=== PATIENT | male | born 1950 | race Caucasian/White ===

== ENCOUNTER → 2023-06-29 08:53 | Outpatient (REF) | payer MEDICARE, BC, SELFPAY | LOC: HWRCS 08:53 | PROVIDERS: ATTENDING PHYSICIAN Internal Medicine Cardiovascular Disease | DX: I42.7 Cardiomyopathy due to drug and external agent (principal) | CPT/HCPCS: 93306 ==

== ENCOUNTER → 2023-08-28 07:23 | Outpatient (REF) | payer MEDICARE, BC, SELFPAY | LOC: RAD 07:23 | PROVIDERS: ATTENDING PHYSICIAN Surgery Vascular Surgery; FAMILY PHYSICIAN Internal Medicine | DX: I73.9 Peripheral vascular disease, unspecified (principal) | CPT/HCPCS: 93922; 93925; 93978 ==

== ENCOUNTER 2023-10-11 12:31 | Emergency (ER) | payer MEDICARE, BC, SELFPAY ==
[2023-10-11 12:33] VITALS: BMI 27.9
--- NOTE | 2023-10-11 14:04 | ED.GENMED ---
History of Present Illness
<Umu Whittington PA-C - Last Filed: 10/11/23 19:59>
General
Chief Complaint: Cough
Source: patient
Exam Limitations: none
Time Seen by Provider: 10/11/23 13:43
Nursing documentation reviewed up to this point in time: agreed with
History of Present Illness
History of Present Illness:
73-year-old male with a history of with defibrillator in place, GERD, hypertension, hyperlipidemia, mantle cell lymphoma in remission presenting emergency department today with concerns of persistent fevers and cough and cold-like symptoms. Patient
started having the symptoms 4 days ago. Patient reports that he is emailing with his primary care provider and talk to him on the phone and was started on Augmentin. Patient reports that he cannot take ibuprofen. Patient has been managing his
fevers with Tylenol. Patient has had 3 doses of Augmentin. Patient denies shortness of breath or chest pain. Patient does take Bactrim 3 times a week and takes acyclovir twice daily and has been on this regimen for multiple years due to his
chronic immunosuppression. Patient denies any hemoptysis. Patient [place] any sore throat. Patient was diagnosed with pneumonia clinically and a chest x-ray was never obtained.
Review of Systems
<Umu Whittington PA-C - Last Filed: 10/11/23 19:59>
Review of Systems
All Other Systems: ROS reviewed and negative except as documented in HPI and ROS
Phy Exam
<Umu Whittington PA-C - Last Filed: 10/11/23 19:59>
Physical Exam
Physical Exam:
General: Patient is well appearing and in no acute distress; non-toxic
Skin: Warm and dry, no rashes or lesions
Head: Normocephalic, atraumatic
Eyes: Sclera non-icteric. EOMs intact.
Cardiac: Regular rate and rhythm, no murmurs
Peripheral Vascular: No lower extremity swelling or edema
Pulm: Normal respiratory effort, diffuse rhonchi heard
Abdomen: No abdominal tenderness to palpation
Neuro: CN II-XII intact, no focal neurologic deficits.
Psychiatric: Appropriate mood and affect.
Course
<Umu Whittington PA-C - Last Filed: 10/11/23 19:59>
Orders/Labs/Results
Orders:
Orders
10/11/23 13:43
CXR2 [CR Chest - 2 Views ] Urgent
Comment:
Reason For Exam: SOB
10/11/23 14:33
Vital Signs- Treatment ONCE
Frequency: Once
10/11/23 14:49
COVID-19 Antigen Urgent
Source: Nasal Swab
Complete Blood Count/With Diff Urgent
Comprehensive Metabolic Panel Urgent
10/11/23 15:20
Lactic Acid Urgent
Blood Culture Urgent
KALE Source: Blood/Venous
Specimen Description:
10/11/23 16:38
0.9% Sodium Chloride 500 ml [Nss] 500 ml IV BOLUS
Azithromycin 500 mg/250 ml [Zithromax Infusion] 500 mg in 250 ml IV NOW
CefTRIAXone [Rocephin] 1,000 mg IV NOW STA
Abnormal Lab Results
10/11/23
14:49
RBC 3.74 L 10^6/uL
(4.70-6.10)
Hgb 12.0 L g/dL
(13.0-18.0)
Hct 33.0 L %
(39.0-52.0)
MCH 32.1 H pg
(27.0-31.0)
Plt Count 99 L 10^3/uL
(130-400)
Absolute Lymphs (auto) 0.3 L 10^3/uL
(1.2-3.4)
Absolute Monos (auto) 0.9 H 10^3/uL
(0.1-0.6)
Neutrophils % 75.8 H %
(42.2-75.2)
Lymphocytes % 5.6 L %
(20.5-51.1)
Monocytes % 16.3 H %
(1.7-9.3)
Sodium 134 L mmol/L
(135-145)
BUN 31 H mg/dl
(9-20)
Glucose 123 H mg/dl
(70-99)
AST 108 H U/L
(17-59)
ALT 135 H U/L
(0-50)
Total Protein 6.0 L g/dl
(6.3-8.2)
10/11/23 14:49
10/11/23 14:49
Vital Signs
Initial and Last Documented VS:
Initial Vital Signs
BP
139/77
10/11/23 14:48
Last Documented Vital Signs
Temp Pulse Resp BP Pulse Ox
97.5 F 86 20 126/81 98
10/11/23 18:46 10/11/23 18:46 10/11/23 18:46 10/11/23 18:46 10/11/23 18:46
<Gigi Scott, DO - Last Filed: 10/11/23 14:57>
Orders/Labs/Results
Orders:
Orders
10/11/23 13:43
CXR2 [CR Chest - 2 Views ] Urgent
Comment:
Reason For Exam: SOB
10/11/23 14:33
Vital Signs- Treatment ONCE
Frequency: Once
10/11/23 14:49
COVID-19 Antigen Urgent
Source: Nasal Swab
Complete Blood Count/With Diff Urgent
Comprehensive Metabolic Panel Urgent
10/11/23 15:20
Lactic Acid Urgent
Blood Culture Urgent
KALE Source: Blood/Venous
Specimen Description:
10/11/23 16:38
0.9% Sodium Chloride 500 ml [Nss] 500 ml IV BOLUS
Azithromycin 500 mg/250 ml [Zithromax Infusion] 500 mg in 250 ml IV NOW
CefTRIAXone [Rocephin] 1,000 mg IV NOW STA
Abnormal Lab Results
10/11/23
14:49
RBC 3.74 L 10^6/uL
(4.70-6.10)
Hgb 12.0 L g/dL
(13.0-18.0)
Hct 33.0 L %
(39.0-52.0)
MCH 32.1 H pg
(27.0-31.0)
Plt Count 99 L 10^3/uL
(130-400)
Absolute Lymphs (auto) 0.3 L 10^3/uL
(1.2-3.4)
Absolute Monos (auto) 0.9 H 10^3/uL
(0.1-0.6)
Neutrophils % 75.8 H %
(42.2-75.2)
Lymphocytes % 5.6 L %
(20.5-51.1)
Monocytes % 16.3 H %
(1.7-9.3)
Sodium 134 L mmol/L
(135-145)
BUN 31 H mg/dl
(9-20)
Glucose 123 H mg/dl
(70-99)
AST 108 H U/L
(17-59)
ALT 135 H U/L
(0-50)
Total Protein 6.0 L g/dl
(6.3-8.2)
10/11/23 14:49
10/11/23 14:49
Vital Signs
Initial and Last Documented VS:
Initial Vital Signs
BP
139/77
10/11/23 14:48
Last Documented Vital Signs
Temp Pulse Resp BP Pulse Ox
97.5 F 86 20 126/81 98
10/11/23 18:46 10/11/23 18:46 10/11/23 18:46 10/11/23 18:46 10/11/23 18:46
<Umu Whittington PA-C - Last Filed: 10/11/23 19:59>
MDM/Problems Addressed
Differential Diagnosis Includes:
Differentials include kidney acquired pneumonia, acute bronchitis, COVID-19 infection, influenza
MDM/Problems Addressed:
Pneumonia:
73-year-old male with a history of with defibrillator in place, GERD, hypertension, hyperlipidemia, mantle cell lymphoma in remission presenting emergency department today with concerns of persistent fevers and cough and cold-like symptoms. Patient
started having the symptoms 4 days ago. Patient reports that he is emailing with his primary care provider and talk to him on the phone and was started on Augmentin. Patient reports that he cannot take ibuprofen.
On physical exam, he is well-appearing, he is not hypoxic, he not have a fever here for us. His CBC is unremarkable, no evidence of leukocytosis, his CMP shows a slight bump in BUN/creatinine ratio, fluids provided. Pulse ox stable on the monitor.
Chest x-ray obtained shows a severe right middle lobe pneumonia. Discussed with patient how we recommend inpatient for the symptoms. Patient adamantly declining inpatient treatment. Patient states that he will return if he experiences a
worsening of his symptoms. Considering this, patient was given a dose of IV ceftriaxone and azithromycin here. We did add oral azithromycin to his regimen and advised him to continue Augmentin. Patient has a follow-up appoint with his primary
care doctor on Thursday. Advised that patient should have a repeat chest x-ray done in a week. Advised continue Tylenol for fever control. Patient stable for discharge.
Chronic conditions affecting care:
History of mantle cell lymphoma with regimen of daily acyclovir and triweekly Bactrim
<Umu Whittington PA-C - Last Filed: 10/11/23 19:59>
*Radiology
Radiology exam reviewed: preliminary read by ED provider (right middle lobe pneumonia)
*Pulse Oximetry
Patient hypoxic: no
*Critical Care Note
Total Time (30-74mins, 75-104mins- exclusive of procedures): Not Applicable
Data Reviewed
Review of Other/Old Records Reveals: Records (Previous ER physician documentation in [facility] to review ) and Discharge Summary (no discharge summary to review )
Source: patient and records
<Uum Whittington PA-C - Last Filed: 10/11/23 19:59>
Patient Management
Escalation/DeEscalation of care consider admission/obs:
Reviewed case with my attending Dr. Scott. Patient stable for discharge.
ED Attending Note
<NABEEL Diamnod Last Filed: 10/11/23 19:59>
-
Portions of this chart may have been created with voice recognition software.� Occasional wrong word or��sound alike� substitutions may have occurred due to the inherent limitations of voice recognition software.
<Gigi Scott DO - Last Filed: 10/11/23 14:57>
ED Attending Note
Patient seen and examined by attending physician: Yes
I performed the substantive portion of visit, reviewed & personally made and approve the management plan that is documented in note by myself or JOSEMANUEL.: Yes
I performed a history and physical exam of patient and discussed management with resident, I reviewed resident's note and agree with documented findings and plan of care.: Yes
ED Attending Note:
I evaluated patient at bedside. The patient is well-appearing with room air sats of 98%. He is not in any respiratory distress. I offered and considered neb treatments as he does have rather significant rhonchi right greater than left however the
patient declines. The patient does have a history of mantle cell lymphoma chronically on Bactrim and acyclovir recently placed on Augmentin.
Discharge Plan
Departure
Patient Disposition: Home (Routine Discharge)
Date of Disposition: 10/11/23
Time of Disposition: 18:41
Patient with high blood pressure during this ER visit?: Yes
Condition: Good
Discharge Problem:
Community acquired pneumonia
Instructions: Pneumonia, Adult (DC), Cough, Adult (DC)
Prescriptions:
New
azithromycin 250 mg tablet
250 mg PO DAILY 5 Days Qty: 5 0RF
No Action
atorvastatin 80 MG tablet
80 mg PO QPM
omeprazole 40 MG capsule,delayed release(DR/EC)
40 mg PO DAILY
acetaminophen [Tylenol Extra Strength] 500 MG tablet
500 mg PO Q4HPRN PRN (Reason: pain)
bisoprolol fumarate 5 MG tablet
5 mg PO BID
eplerenone 25 MG tablet
25 mg PO DAILY
ezetimibe 10 MG tablet
10 mg PO HS
tadalafil [Cialis] 5 MG tablet
5 mg PO DAILY
magnesium oxide 500 MG capsule
500 mg PO HS
xiavkkom-llwen-lhp 149-hyal ac 1 EACH tablet
1 ea PO BID
cholecalciferol (vitamin D3) 2,000 UNIT tablet
2,000 unit PO DAILY
mv,Ca,kzc-qjxc-OD-lycopene [Centrum Men] 1 EACH tablet
1 ea PO DAILY
rivaroxaban [Xarelto] 20 MG tablet
20 mg PO QPM
icosapent ethyl [Vascepa] 1 GM capsule
2 gm PO BID
sacubitril-valsartan [Entresto] 1 EACH tablet
1 ea PO BID
Coq10
300 mg PO HS
metformin 500 MG tablet
500 mg PO HS Qty: 0 0RF
Rx Instructions:
Restart on 12/22/20
aspirin 81 MG tablet,delayed release (DR/EC)
81 mg PO DAILY Qty: 30 0RF
Rx Instructions:
continue indefinitely
Referrals:
Dayami Sánchez, [Family Provider] -
Activity Restrictions/Additional Instructions:
Azithromycin has been sent to your pharmacy. Starting tomorrow, you can take 1 tablet once daily for 5 days. Please continue the Augmentin as well.
Please return emergency department should you experience intractable fevers, chest pain, shortness of breath, intractable vomiting, abdominal pain, weakness, or any other signs or symptoms concerning to you.
Please follow-up with your primary care provider in 1 week to ensure the resolution of your symptoms and have a repeat chest x-ray performed.
Interventions
Interventions:
*Risk Screen - Suicide Last Done: 10/11/23 12:33
*General Assessment Last Done: 10/11/23 15:00
*Neglect/Abuse Screening Last Done: 10/11/23 12:33
ED- Fall Risk Assessment Last Done: 10/11/23 12:33
*ED COVID-19 Vaccine History Last Done: 10/11/23 15:00
*Nursing Disposition Last Done: 10/11/23 18:46
ED- Pulmonary Assessment Last Done: 10/11/23 15:00
Discharge Date and Time
Discharge Date/Time: 10/11/23 18:50
Print Language: EMIRATI
[2023-10-11 14:48] VITALS: BP 139/77
[2023-10-11 15:00] VITALS: BP 136/75
[2023-10-11 15:11] LABS: % Basophils 0.4 % (0-2); % Eosinophils 1.5 % (0-6); % Immature Granulocytes 0.4 % (0-0.5); % Lymphocytes 5.6 % (20.5-51.1); % Monocytes 16.3 % (1.7-9.3); % Neutrophils 75.8 % (42.2-75.2); Absolute Eosinophils 0.1 10^3/uL (0-0.7); Absolute Lymphocytes 0.3 10^3/uL (1.2-3.4); Absolute Monocytes 0.9 10^3/uL (0.1-0.6); Mean Corp Hgb Conc. 36.4 g/dL (33.0-37.0); Mean Corpuscular Hgb 32.1 pg (27.0-31.0); Mean Corpuscular Volume 88.2 fL (80.0-94.0); Nucleated Red Blood Cells % 0 % (-); Red Blood Cell Count 3.74 10^6/uL (4.70-6.10); Red Cell Dist. Width 13.1 % (11.5-14.5); White Blood Cell Count 5.2 10^3/uL (4.8-10.8)
[2023-10-11 15:20] LABS: COVID-19 Antigen Negative (Negative)
[2023-10-11 15:31] LABS: ALT (SGPT) 135 U/L (0-50); AST (SGOT) 108 U/L (17-59); Albumin 4.2 g/dl (3.5-5.0); Alkaline Phosphatase 95 U/L (38-126); Blood Urea Nitrogen 31 mg/dl (9-20); Calcium 9.3 mg/dl (8.4-10.2); Carbon Dioxide 23 mmol/L (22-30); Chloride 104 mmol/L (98-107); Estimated Creatinine Clearance 69 ml/min; Glucose 123 mg/dl (70-99); Potassium 4.8 mmol/L (3.5-5.1); Sodium 134 mmol/L (135-145); Total Bilirubin 1.2 mg/dl (0.2-1.3); eGFR > 60.00
[2023-10-11 15:39] LABS: Lactic Acid 0.9 mmol/L (0.7-2.0)
[2023-10-11 15:42] LABS: Platelet Count 99 10^3/uL (130-400)
[2023-10-11] MEDS: NSS 500 IV (17:10)
[2023-10-11] MEDS: ZITHROMAX INFUSION 250 IV (17:10)
[2023-10-11] MEDS: ROCEPHIN 1000 MG IV (17:10)
[2023-10-11 18:46] VITALS: BP 126/81
== END 2023-10-11 18:50 | disposition home or self-care (01) ==
LOC: EMR 12:31
PROVIDERS: Physician Assistant; EMERGENCY PHYSICIAN Emergency Medicine; FAMILY PHYSICIAN Internal Medicine
DX: J18.9 Pneumonia, unspecified organism (principal); K21.9 Gastro-esophageal reflux disease without esophagitis; I10 Essential (primary) hypertension; E78.00 Pure hypercholesterolemia, unspecified; D84.821 Immunodeficiency due to drugs; Z79.624 Long term (current) use of inhibitors of nucleotide synthesis; Z85.72 Personal history of non-Hodgkin lymphomas; Z95.810 Presence of automatic (implantable) cardiac defibrillator
CPT/HCPCS: 99283; 96365; 96375; 71046; 80053; 83605; 85025; 87040; 87811

== ENCOUNTER → 2023-10-15 07:06 | Outpatient (REF) | payer MEDICARE, BC, SELFPAY ==
[2023-10-15 08:00] LABS: % Basophils 1.2 % (0-2); % Eosinophils 3.8 % (0-6); % Immature Granulocytes 3.8 % (0-0.5); % Lymphocytes 11.5 % (20.5-51.1); % Monocytes 12.1 % (1.7-9.3); % Neutrophils 67.6 % (42.2-75.2); Absolute Eosinophils 0.1 10^3/uL (0-0.7); Absolute Immature Granulocytes 0.1 10^3/uL (0-0.05); Absolute Lymphocytes 0.4 10^3/uL (1.2-3.4); Absolute Monocytes 0.4 10^3/uL (0.1-0.6); Absolute Neutrophils 2.3 10^3/uL (1.4-6.5); Hematocrit 33.4 % (39.0-52.0); Hemoglobin 11.8 g/dL (13.0-18.0); Mean Corp Hgb Conc. 35.3 g/dL (33.0-37.0); Mean Corpuscular Hgb 31.8 pg (27.0-31.0); Nucleated Red Blood Cells % 0 % (-); Platelet Count 142 10^3/uL (130-400); Red Blood Cell Count 3.71 10^6/uL (4.70-6.10); Red Cell Dist. Width 13.1 % (11.5-14.5); White Blood Cell Count 3.4 10^3/uL (4.8-10.8)
[2023-10-15 08:23] LABS: ALT (SGPT) 82 U/L (0-50); AST (SGOT) 49 U/L (17-59); Alkaline Phosphatase 84 U/L (38-126); Blood Urea Nitrogen 28 mg/dl (9-20); Carbon Dioxide 22 mmol/L (22-30); Chloride 110 mmol/L (98-107); Glucose 116 mg/dl (70-99); Potassium 4.6 mmol/L (3.5-5.1); Sodium 138 mmol/L (135-145); Total Bilirubin 0.4 mg/dl (0.2-1.3); Total Protein 5.6 g/dl (6.3-8.2); eGFR > 60.00
== END ==
LOC: RAD 07:06
PROVIDERS: ATTENDING PHYSICIAN Internal Medicine
DX: J18.9 Pneumonia, unspecified organism (principal); R74.01 Elevation of levels of liver transaminase levels
CPT/HCPCS: 36415; 71046; 80053; 85025

== ENCOUNTER 2023-10-29 15:33 | Inpatient (IN) | payer MEDICARE, BC, SELFPAY ==
[2023-10-29 11:38] VITALS: BP 104/67
--- NOTE | 2023-10-29 12:31 | ED.GENMED ---
History of Present Illness
General
Chief Complaint: Pneumonia Symptoms
Source: patient and spouse
Exam Limitations: none
Time Seen by Provider: 10/29/23 12:11
Nursing documentation reviewed up to this point in time: agreed with
History of Present Illness
History of Present Illness:
73 yo male hx of history of mantle cell lymphoma chronically on Bactrim and acyclovir recently placed on Augmentin, defibrillator, HTN, HLD, Pacemaker, NIDDM, Factor V Leiden is here for persistent 'low grade fevers' of 99.2, return of cough.
Was seen here on 10/10 and diagnosed with PNA, declined admission at that time, was given Rocephin 1 gm IV and [facility]. States he did well, was back to riding his bike, exercising until 4 days ago when he started with intermittent cough
and the low grade fevers. Is here requesting 'that IV antibiotic that worked so well last time.'
Denies chills, n/v/d/c. Denies CP or trouble breathing. cough does not keep him up at night, is intermittent. Appetite has been good.
Past History
Past History
ED Past Medical History: HTN, Hypercholesterolemia, NIDDM, Other (mantle cell lymphoma chronically on Bactrim and acyclovir recently placed on Augmentin, ) and Other (Factor B Leiden)
ED Past Surgical History: Cardiac (Pacemaker, defibrillator)
Social History
Tobacco: Former smoker
Alcohol: None
Personal:
Living: with family
Employment: Retired
Review of Systems
Review of Systems
Allergies reviewed?: Yes
All Other Systems: ROS reviewed and negative except as documented in HPI and ROS
Constitutional: Reports fever (Temperature max has been 99.4) and fatigue
EENT: Denies sore throat
Respiratory: Reports cough; Denies trouble breathing
Cardiac: Denies chest pain
ABD/GI: Denies abdominal pain, nausea, vomiting or diarrhea
: Reports dysuria and difficulty voiding
Musculoskeletal: Reports no symptoms
Skin: Reports no symptoms
Neurological: Reports no symptoms
Phy Exam
Physical Exam
Physical Exam:
GENERAL: No acute distress. A&Ox3.
CONSTITUTIONAL: Afebrile.
EYES: Clear, conjunctivae normal
ENMT: moist mucus membranes, Pharynx nl
RESPIRATORY: Regular respirations, nonlabored, lungs clear.
CARDIOVASCULAR: Regular rate and rhythm, no murmurs, no rubs.
GI: Soft, nontender, normal BS
MUSCULOSKELETAL: Moves with ease. Well perfused.
SKIN: Warm, dry, pink
PSYCH: Normal mood and affect. Well kept, interactive and appropriate
NEUROLOGIC: Awake, alert and oriented. No focal neurological deficits
Course
Orders/Labs/Results
Orders:
Orders
10/29/23 12:26
CR Chest - 2 Views Urgent
Comment:
Reason For Exam: recent tx for pna cough starting up again
10/29/23 12:28
Complete Blood Count/With Diff Urgent
Comprehensive Metabolic Panel Urgent
10/29/23 13:26
0.9% Sodium Chloride 1000 ml [Nss] 1,000 ml IV BOLUS
10/29/23 13:49
CefTRIAXone [Rocephin] 1,000 mg IV NOW STA
10/29/23 15:14
Admit/Transfer Patient As Directed
Co-Sign Provider:
Level of Care: Inpatient admission
Assign to:: Medical/Surgical
Physician / Group: Veronica
Diagnosis: Pneumonia
Reason for Hospitalization: Above
Expected length of stay greater than two midnights?: Yes
ELOS- Estimated Length of Stay in days: 2
I certify the patient meets the requirements for IP care: Yes
PRN Pain Medication Management As Directed
May give lesser potent ordered pain med per pt: Yes
preference::
Protocol:: Medication orders for pain may be administered in a
manner that supports deferring to patient preference
when the pt is:
-Requesting an ordered lesser potent pain medication.
Least to most potent pain medications are defined as:
acetaminophen < NSAID < tramadol < opioids (morphine,
oxycodone, hydromorphone).
- Requesting a lesser dose of the same medication IF
ORDERED.
- Requesting a less intrusive route of administration
if both routes are prescribed by the provider (PO <
IV).
10/29/23 15:17
Code Status As Directed
Resuscitation Status: Full Code
Abnormal Lab Results
10/29/23
12:28
WBC 4.3 L 10^3/uL
(4.8-10.8)
RBC 3.57 L 10^6/uL
(4.70-6.10)
Hgb 11.4 L g/dL
(13.0-18.0)
Hct 32.0 L %
(39.0-52.0)
MCH 31.9 H pg
(27.0-31.0)
Plt Count 96 L 10^3/uL
(130-400)
Absolute Lymphs (auto) 0.3 L 10^3/uL
(1.2-3.4)
Absolute Monos (auto) 0.7 H 10^3/uL
(0.1-0.6)
Lymphocytes % 6.3 L %
(20.5-51.1)
Monocytes % 17.2 H %
(1.7-9.3)
BUN 29 H mg/dl
(9-20)
Creatinine 1.4 H mg/dL
(0.7-1.3)
Glucose 133 H mg/dl
(70-99)
Total Protein 5.7 L g/dl
(6.3-8.2)
10/29/23 12:28
10/29/23 12:28
Vital Signs
Initial and Last Documented VS:
Initial Vital Signs
Temp Pulse Resp BP Pulse Ox
97.7 F 96 16 104/67 96
10/29/23 11:38 10/29/23 11:38 10/29/23 11:38 10/29/23 11:38 10/29/23 11:38
Last Documented Vital Signs
Temp Pulse Resp BP Pulse Ox
97.7 F 67 18 131/81 99
10/29/23 11:38 10/29/23 15:20 10/29/23 15:20 10/29/23 15:20 10/29/23 15:20
MDM/Problems Addressed
Differential Diagnosis Includes:
Persistent pneumonia, COVID
MDM/Problems Addressed:
73 yo male hx of history of mantle cell lymphoma chronically on Acyclovir recently finished Augmentin, defibrillator, HTN, HLD, Pacemaker, NIDDM, Factor V Leiden is here for persistent 'low grade fevers' of 99.2, return of cough.
Was seen here on 10/10 and diagnosed with PNA, declined admission at that time, was given Rocephin 1 gm IV and sent home on [facility]. States he did well, was back to riding his bike, exercising until 4 days ago when he started with intermittent cough
and the low grade fevers. Is here requesting 'that IV antibiotic that worked so well last time.'
Denies chills, n/v/d/c. Denies CP or trouble breathing. cough does not keep him up at night, is intermittent. Appetite has been good.
Well appearing, O2 sat 96% RA
1:00 PM:
CBC with no clinically significant abnormality
CMP: BUN/Creat 29/1.4
COVID-negative
Chest xray radiology report read: IMPRESSION:
Persistent right middle lobe consolidation, likely due to ongoing pneumonia. Recommend follow-up following symptom resolution to ensure no underlying lesion.
2:15 PM:
73 yo male with persistent RML pneumonia, after Rocephin IV x 1 on 10/10, Augmentin 10/08-10/22, Zpack 10/10-10/15. [place] well, after these but 4 days ago, cough starting up again as well as low grade fever.
Plan: Admit: Failing out pt antibiotics for PNA, dehydration
Chronic conditions affecting care: HTN, Cancer (mantle cell lymphoma) and Other
*Critical Care Note
Total Time (30-74mins, 75-104mins- exclusive of procedures): Not Applicable
ED Attending Note
-
Portions of this chart may have been created with voice recognition software.� Occasional wrong word or��sound alike� substitutions may have occurred due to the inherent limitations of voice recognition software.
Discharge Plan
Departure
Patient Disposition: Admit
Date of Disposition: 10/29/23
Time of Disposition: 14:06
Admit to: Med/Surg
Presentation/result/management discussed w/ accepting MD/DO: Hospitalist
Condition: Fair
Discharge Problem:
Pneumonia, Acute kidney insufficiency
Interventions
Interventions:
*Risk Screen - Suicide Last Done: 10/29/23 11:38
*General Assessment Last Done: 10/29/23 11:38
*Neglect/Abuse Screening Last Done: 10/29/23 11:38
*ED COVID-19 Vaccine History Last Done: 10/29/23 11:38
ED- Cardiac Assessment Last Done: 10/29/23 15:21
ED- Pulmonary Assessment Last Done: 10/29/23 15:21
[2023-10-29 12:55] LABS: ALT (SGPT) 40 U/L (0-50); AST (SGOT) 41 U/L (17-59); Albumin 4.1 g/dl (3.5-5.0); Alkaline Phosphatase 66 U/L (38-126); Blood Urea Nitrogen 29 mg/dl (9-20); Calcium 9.3 mg/dl (8.4-10.2); Carbon Dioxide 25 mmol/L (22-30); Chloride 103 mmol/L (98-107); Glucose 133 mg/dl (70-99); Potassium 4.3 mmol/L (3.5-5.1); Sodium 135 mmol/L (135-145); Total Protein 5.7 g/dl (6.3-8.2); eGFR 52.74
[2023-10-29 13:21] LABS: % Basophils 0.7 % (0-2); % Eosinophils 1.6 % (0-6); % Immature Granulocytes 0.2 % (0-0.5); % Lymphocytes 6.3 % (20.5-51.1); % Monocytes 17.2 % (1.7-9.3); Absolute Eosinophils 0.1 10^3/uL (0-0.7); Absolute Lymphocytes 0.3 10^3/uL (1.2-3.4); Absolute Monocytes 0.7 10^3/uL (0.1-0.6); Absolute Neutrophils 3.2 10^3/uL (1.4-6.5); Hemoglobin 11.4 g/dL (13.0-18.0); Mean Corp Hgb Conc. 35.6 g/dL (33.0-37.0); Mean Corpuscular Hgb 31.9 pg (27.0-31.0); Mean Corpuscular Volume 89.6 fL (80.0-94.0); Nucleated Red Blood Cells % 0 % (-); Red Blood Cell Count 3.57 10^6/uL (4.70-6.10); Red Cell Dist. Width 13.3 % (11.5-14.5); White Blood Cell Count 4.3 10^3/uL (4.8-10.8)
[2023-10-29 13:51] LABS: Platelet Count 96 10^3/uL (130-400)
[2023-10-29 13:52] LABS: Mean Platelet Volume 9.4 fL (7.4-10.4)
[2023-10-29] MEDS: NSS 1000 IV ×2 (14:07→17:31)
[2023-10-29] MEDS: ROCEPHIN 1000 MG IV (14:07)
[2023-10-29 15:20] VITALS: BP 131/81
--- NOTE | 2023-10-29 15:22 | HPS.HSE ---
Family Physician
-
Family Physician: Dayami Sánchez DO
Chief Complaint
-
Persistent pneumonia
History of Present Illness
Patient is a 73 years old male with history of mantle cell lymphoma, nonischemic cardiomyopathy heart block status post pacemaker, PAD who was seen in the emergency room on 728 for fever, chills and cough. At that time patient was found to have
right middle lobe pneumonia. He was offered to stay in the hospital for treatment, although declined. Patient was given a single dose of ceftriaxone and discharged home. Completed course of oral antibiotics with Zithromax prescribed by primary
physician. [place] relatively improved, over the last few days developed persistent cough, fatigue, denies any fever, although reports occasional chills and rigors.
Outpatient follow-up chest x-ray from 10/14 with findings consistent with right middle lobe pneumonia.
On presentation to the emergency room today patient is afebrile hemodynamically stable, stable respiratory status with no requirements of supplemental oxygen
His chest x-ray on admission with persistent right middle lobe infiltrate.
Patient was given ceftriaxone 1 g and referred for admission and further evaluation.
In addition on further questioning patient described discomfort with pill swallowing, occasional cough upon oral intake. He denies any pain including a dyne aphasia or epigastric pain.
Medical History
Past Medical History
Past Medical History: Reports Other (Mantle cell lymphoma. PAD. Nonischemic cardiomyopathy.)
Past Surgical History: Reports Other (Vascular/PAD)
Social History
Tobacco: Non-smoker
Drug: None
Personal:
Living: With Family
Employment: Retired
Family History
Family History: Not pertinent
Allergies / Home Medications
Allergies reflects when Allergies were last updated in [employer].
Home Medications with original date entered in [employer]
Allergy/Medication List:
Allergies
Allergy/AdvReac Type Severity Reaction Status Date / Time
allopurinol Allergy Hives Verified 10/11/23 12:35
Home Medications
bisoprolol fumarate 5 mg tablet 5 mg PO BID 12/17/20
cholecalciferol (vitamin D3) 50 mcg (2,000 unit) tablet 2,000 unit PO DAILY 12/17/20
coQ10 (ubiquinol) 100 mg capsule 100 mg PO DAILY ##0 12/17/20
eplerenone 25 mg tablet 25 mg PO DAILY 12/17/20
ezetimibe 10 mg tablet 10 mg PO HS 12/17/20
tadalafil 5 mg tablet (Cialis) 5 mg PO QPM 12/17/20
acyclovir 400 mg tablet 400 mg PO BID 10/29/23
empagliflozin 10 mg tablet (Jardiance) 10 mg PO DAILY 10/29/23
glucosamine sulfate 500 mg tablet (Glucosamine) 1,500 mg PO DAILY 10/29/23
magnesium oxide 400 mg PO DAILY 10/29/23
omeprazole 20 mg tablet,delayed release 20 mg PO DAILY 10/29/23
rivaroxaban 20 mg tablet (Xarelto) 20 mg PO QPM 10/29/23
rosuvastatin 40 mg tablet (Crestor) 40 mg PO QPM 10/29/23
sacubitril 97 mg-valsartan 103 mg tablet (Entresto) 1 tab PO BID 10/29/23
sulfamethoxazole 800 mg-trimethoprim 160 mg tablet (Bactrim DS) 1 tab PO MOWEFR@0800 10/29/23
therapeutic multivitamin 1 tab PO DAILY 10/29/23
vitamin K2 (MK-4) 100 mcg tablet 300 mcg PO DAILY 10/29/23
Review of Systems
-
A 12 point ROS was completed and negative except as noted: Yes
Respiratory: Reports See HPI
Cardiac: Reports See HPI
Abdomen/GI: Reports See HPI
Physical Exam
Vital Signs
Vital Signs
Temp Pulse Resp BP Pulse Ox
97.7 F 67 18 131/81 99
10/29/23 11:38 10/29/23 15:20 10/29/23 15:20 10/29/23 15:20 10/29/23 15:20
Physical Exam
General: Well Developed, Well Nourished and No Apparent Distress
HEENT: NormoCephalic, Moist mucous membranes and Atraumatic
Respiratory: Other (Bronchial sounds at the right midlung); No Wheezes
Cardiac: S1/S2 and Regular Rhythm; No Murmur or Rub
GI: Soft, Non Tender, Non Distended and Normal Bowel Sounds; No Organomegaly
Rectal: Deferred by Provider
Musculoskeletal: No Clubbing, No Cyanosis and No Edema
Skin: No Rash
Neuro: Nonfocal/grossly intact
Laboratory Results
-
10/29/23 12:28
10/29/23 12:28
Laboratory Results
Total Bilirubin 1.0 mg/dl (0.2-1.3) 10/29/23 12:28
AST 41 U/L (17-59) 10/29/23 12:28
ALT 40 U/L (0-50) 10/29/23 12:28
Alkaline Phosphatase 66 U/L (38-126) 10/29/23 12:28
Data Reviewed
-
Diagnostic Radiology: Report Reviewed by me
Lab Data: Labs Reviewed by me
Impression/Plan
-
IMPRESSION:
Persistent right middle lobe pneumonia
Odynophagia
Acute kidney injury
Conditions prior to admission.
Mantle cell lymphoma diagnosed in 2011 with recurrence in 2021.
Nonischemic cardiomyopathy with recovered EF.
Status post pacemaker 2014.
PAD.
Dyslipidemia.
Factor V Leyden mutation on anticoagulation with Xarelto
PLAN:
Right middle lobe pneumonia.
Suspect community-acquired.
? If related to odynophagia with reasonable suspicion for aspiration.
Initially treated in ED with ceftriaxone and doxycycline.
Blood culture from 10/10 negative.
With persistent infiltrate will need follow-up imaging.
Incentive spirometry
Mucolytic's
Odynophagia. Patient reports discomfort with swallowing pills but not real esophageal or epigastric pain.
No thrush.
Speech and swallow evaluation and VSE.
If persistent and relevant, would consider further GI evaluation including esophageal imaging
Acute kidney injury suspect secondary to Entresto, eplerenone, Bactrim.
Hold all of above.
Challenge with isotonic solution.
Monitor for hypotension.
Follow BMP
Nonischemic cardiomyopathy with recovered EF 30% to 50%
Possibly cardiac toxicity from doxorubicin
On GDMT prior to admission including bisoprolol, Entresto, Jardiance.
Monitor volume status closely
Mantle cell lymphoma.
Initial diagnosis 2011 treated with doxorubicin based regimen
Records in 2021 treated with CAR-T cell therapy
On chronic acyclovir and Bactrim
Factor V Leyden
On anticoagulation with Xarelto
PAD with history of bilateral angiogram and stenting of bilateral common iliac arteries and left external artery 01/03.
Full code
DVT prophylaxis Xarelto
[2023-10-29 16:20] LABS: COVID-19 Antigen Negative (Negative)
[2023-10-29 16:53] VITALS: BP 143/73; BMI 28.4
--- NOTE | 2023-10-29 17:25 | PTCARENOTE ---
pt arrived via stretcher from ED at 16:40. ambulated to bed independently. vital signs and assessment completed upon arrival. call corona within reach, oriented to room.
[2023-10-29] MEDS: CRESTOR 40 MG PO (17:31)
[2023-10-29] MEDS: XARELTO 20 MG PO (17:31)
[2023-10-29] MEDS: VIBRAMYCIN 100 MG PO (19:45)
[2023-10-29] MEDS: MUCINEX 600 MG PO (19:45)
[2023-10-29] MEDS: ZOVIRAX 400 MG PO (19:45)
[2023-10-29] MEDS: ZEBETA 5 MG PO (20:37)
[2023-10-29] MEDS: ZETIA 10 MG PO (21:08)
[2023-10-29 23:39] VITALS: BP 109/54
[2023-10-30 08:09] VITALS: BP 119/76
--- NOTE | 2023-10-30 08:23 | PTOTSP ---
Speech Therapy Swallowing Assessment
Oral/pharyngeal swallow deemed within functional limits without overt signs of aspiration. Given persistent right pneumonia, and patient report of a recent pill dysphagia, a VSE was ordered and will be completed later this day.
Recommend
1. Continue Regular solids and thin liquids
2. Upright with intake.
3. Pills 2-3 at a time with liquid as tolerated.
4. Reflux precautions.
5. Further recommendations as indicated following VSE.
--- NOTE | 2023-10-30 09:00 | PTOTSP ---
Addendum entered and electronically signed by ST Aurea 10/30/23 13:38:
Error in below note. Should read:
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 Please reconsult as indicated.
Original Note:
Speech Language Pathology
VIDEOFLUOROSCOPIC SWALLOWING EXAMINATION (VSE) completed. Overall, pt with functional oropharyngeal swallow. Transient trace penetration noted with thin liquids via cup. No other penetration/aspiration noted during study.
Recommend:
(1) Continue regular solids/thin liquids
(2) General aspiration precautions
(3) Meds as tolerated
(4) SHOP MECHANIC HELPER to continue to follow
[2023-10-30] MEDS: VIBRAMYCIN 100 MG PO ×2 (09:35→20:01)
[2023-10-30] MEDS: MAG-TAB SR 84 MG PO (09:36)
[2023-10-30] MEDS: ZEBETA 5 MG PO ×2 (09:36→20:01)
[2023-10-30] MEDS: PROTONIX 40 MG PO (09:36)
[2023-10-30] MEDS: VITAMIN D3 (cholecalciferol) 50 MCG PO (09:36)
[2023-10-30] MEDS: THERAGRAN 1 TABLET PO (09:36)
[2023-10-30] MEDS: ZOVIRAX 400 MG PO ×2 (09:36→20:13)
[2023-10-30] MEDS: MUCINEX 600 MG PO ×2 (09:36→20:00)
[2023-10-30] MEDS: JARDIANCE 10 MG PO (09:37)
[2023-10-30 09:43] LABS: % Basophils 0.4 % (0-2); % Eosinophils 0.8 % (0-6); % Immature Granulocytes 0.4 % (0-0.5); % Lymphocytes 7.3 % (20.5-51.1); % Monocytes 12.6 % (1.7-9.3); % Neutrophils 78.5 % (42.2-75.2); Absolute Lymphocytes 0.4 10^3/uL (1.2-3.4); Absolute Monocytes 0.6 10^3/uL (0.1-0.6); Absolute Neutrophils 3.9 10^3/uL (1.4-6.5); Hematocrit 31.9 % (39.0-52.0); Hemoglobin 11.3 g/dL (13.0-18.0); Mean Corp Hgb Conc. 35.4 g/dL (33.0-37.0); Mean Corpuscular Hgb 31.1 pg (27.0-31.0); Mean Corpuscular Volume 87.9 fL (80.0-94.0); Mean Platelet Volume 9.9 fL (7.4-10.4); Nucleated Red Blood Cells % 0 % (-); Platelet Count 96 10^3/uL (130-400); Red Blood Cell Count 3.63 10^6/uL (4.70-6.10); Red Cell Dist. Width 13.4 % (11.5-14.5); White Blood Cell Count 4.9 10^3/uL (4.8-10.8)
[2023-10-30 09:55] LABS: Blood Urea Nitrogen 19 mg/dl (9-20); Calcium 9.1 mg/dl (8.4-10.2); Carbon Dioxide 23 mmol/L (22-30); Chloride 102 mmol/L (98-107); Estimated Creatinine Clearance 69 ml/min; Glucose 183 mg/dl (70-99); Potassium 4.4 mmol/L (3.5-5.1); Sodium 135 mmol/L (135-145); eGFR > 60.00
--- NOTE | 2023-10-30 10:21 | CM ---
Addendum entered by Rin Agosto 10/30/23 10:24:
Patient provided CM with copy of Advance Directive, placed in patients chart.
Original Note:
Patient seen bedside with significant other, initial assessment completed. Patient resides in a ranch style home with a basement, one step to enter. Patient denies use of any DME, denies VN or SNF history. Patient PCP Dayami Sánchez, pharmacy
[facility] in [place]. Patient confirms prescription coverage through Medicare Part D. Patient denies food, housing/utility, transportation insecurities at home. CM will continue to follow for all discharge planning needs.
Plan; home no needs likely.
[2023-10-30] MEDS: STERILE WATER FOR INJECTION 10 ML IV (13:14)
[2023-10-30] MEDS: ROCEPHIN 1000 MG IV (13:16)
[2023-10-30 15:04] LABS: Hepatitis C Antibody Negative (Negative)
[2023-10-30 16:06] VITALS: BP 114/54
--- NOTE | 2023-10-30 16:13 | W.PN.HOSP.TC ---
Today's Communication/Plan
-
Continue antibiotics.
Monitor temperature curve
Assessment / Plan
Assessment / Plan
IMPRESSION:
Persistent right middle lobe pneumonia. Community-acquired
Immunosuppressed state
Odynophagia
Acute kidney injury
Conditions prior to admission.
Mantle cell lymphoma diagnosed in 2011 with recurrence in 2021.
Nonischemic cardiomyopathy with recovered EF.
Status post pacemaker 2014.
PAD.
Dyslipidemia.
Factor V Leyden mutation on anticoagulation with Xarelto
PLAN:
Right middle lobe pneumonia.
Community-acquired
Less likely aspiration
? If related to odynophagia with reasonable suspicion for aspiration.
Speech evaluation including VSE with no evidence of aspiration
Initially treated in ED with ceftriaxone and doxycycline.
Not septic on presentation.
Stable respiratory status with no requirements for supplemental oxygen
Blood culture from 10/10 negative.
Repeated blood culture 10/14 15 negative to date.
WBC within normal limits with left shift.
Tmax 102.9
Continue ceftriaxone doxycycline.
Continue mucolytic's incentive spirometry
Could be discharged if afebrile for 24 hours on oral antibiotics for total of 10 days and follow-up imaging as outpatient.
Odynophagia. Patient reports discomfort with swallowing pills but not real esophageal or epigastric pain.
No thrush.
Speech and swallow evaluation and VSE with no evidence of aspiration
If persistent and relevant, would consider further GI evaluation including esophageal imaging
Acute kidney injury suspect secondary to Entresto, eplerenone, Bactrim.
Hold all of above.
Creatinine improved to normal with IV fluids.
Could consider to reinstate Entresto holding Bactrim and prednisone upon discharge. Patient post CAR-T therapy will need antibiotic prophylaxis, should be referred to primary oncology.
Monitor for hypotension.
Follow BMP
Nonischemic cardiomyopathy with recovered EF 30% to 50%
Possibly cardiac toxicity from doxorubicin
On GDMT prior to admission including bisoprolol, Entresto, Jardiance.
Monitor volume status closely
Mantle cell lymphoma.
Initial diagnosis 2011 treated with doxorubicin based regimen
Records in 2021 treated with CAR-T cell therapy
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
Factor V Leyden
On anticoagulation with Xarelto
PAD with history of bilateral angiogram and stenting of bilateral common iliac arteries and left external artery 01/03.
Full code
DVT prophylaxis Xarelto
Anticipated Discharge: 24 - 48 hours
Subjective/Interval History
-
Date of Service: October 30, 2023
Objective Data
-
Labs:
Laboratory Results
10/30/23
08:56
WBC 4.9
Hgb 11.3 L
Hct 31.9 L
Plt Count 96 L
Sodium 135
Potassium 4.4
Chloride 102
Carbon Dioxide 23
BUN 19
Creatinine 1.0
Glucose 183 H
Calcium 9.1
Vital Signs:
Vital Signs
Temp Pulse Resp BP Pulse Ox
102.9 F H 80 18 114/54 95
10/30/23 16:06 10/30/23 16:06 10/30/23 16:06 10/30/23 16:06 10/30/23 16:06
I&O
10/29/23 10/30/23 10/31/23
06:59 06:59 06:59
Intake Total 480 / 480
Balance 480 / 480
Physical Exam
-
General: Well Developed and No Apparent Distress
HEENT: Normocephalic, Atraumatic and Moist Mucous Membranes
Respiratory: Rhonchi (Right base); Negative Wheezes
Cardiac: Regular Rhythm and S1/S2; Negative Murmur, Rub or Gallop
GI: Soft, Nontender, Nondistended and Normal Bowel Sounds; Negative Organomegaly
Rectal: Deferred by Provider
Musculoskeletal: No Clubbing, No Cyanosis and No Edema
Skin: Negative Rash
Neuro: Nonfocal/Grossly Intact
[2023-10-30] MEDS: XARELTO 20 MG PO (16:19)
[2023-10-30] MEDS: CRESTOR 40 MG PO (16:19)
[2023-10-30] MEDS: TYLENOL 650 MG PO (16:19)
[2023-10-30] MEDS: ZETIA 10 MG PO (22:16)
[2023-10-30 23:38] VITALS: BP 112/60
[2023-10-31 07:17] VITALS: BP 127/67
[2023-10-31] MEDS: MUCINEX 600 MG PO ×2 (08:49→20:22)
[2023-10-31] MEDS: THERAGRAN 1 TABLET PO (08:50)
[2023-10-31] MEDS: PROTONIX 40 MG PO (08:50)
[2023-10-31] MEDS: VIBRAMYCIN 100 MG PO ×2 (08:50→20:22)
[2023-10-31] MEDS: VITAMIN D3 (cholecalciferol) 50 MCG PO (08:51)
[2023-10-31] MEDS: JARDIANCE 10 MG PO (08:51)
[2023-10-31] MEDS: ZEBETA 5 MG PO ×2 (08:51→20:26)
[2023-10-31] MEDS: MAG-TAB SR 84 MG PO (08:51)
[2023-10-31] MEDS: ZOVIRAX 400 MG PO ×2 (09:22→20:22)
--- NOTE | 2023-10-31 11:36 | W.PN.HOSP.TC ---
Today's Communication/Plan
-
Continue with broad-spectrum IV antibiotic
Labs in the morning
Trend fever curve
Assessment / Plan
Assessment / Plan
IMPRESSION:
Persistent right middle lobe pneumonia. Community-acquired
Immunosuppressed state
Odynophagia
Acute kidney injury
Conditions prior to admission.
Mantle cell lymphoma diagnosed in 2011 with recurrence in 2021.
Nonischemic cardiomyopathy with recovered EF.
Status post pacemaker 2014.
PAD.
Dyslipidemia.
Factor V Leyden mutation on anticoagulation with Xarelto
PLAN:
Right middle lobe pneumonia.
Community-acquired
Less likely aspiration
? If related to odynophagia with reasonable suspicion for aspiration.
Speech evaluation including VSE with no evidence of aspiration
Initially treated in ED with ceftriaxone and doxycycline.
Not septic on presentation.
Stable respiratory status with no requirements for supplemental oxygen
Blood culture from 10/10 negative.
Repeated blood culture 10/14 15 negative to date.
WBC within normal limits with left shift.
Tmax 102.9
Continue ceftriaxone doxycycline.
Continue mucolytic's incentive spirometry
Could be discharged if afebrile for 24 hours on oral antibiotics for total of 10 days and follow-up imaging as outpatient.
Odynophagia. Patient reports discomfort with swallowing pills but not real esophageal or epigastric pain.
No thrush.
Speech and swallow evaluation and VSE with no evidence of aspiration
If persistent and relevant, would consider further GI evaluation including esophageal imaging
Acute kidney injury suspect secondary to Entresto, eplerenone, Bactrim.
Hold all of above.
Creatinine improved to normal with IV fluids.
Patient did not like the idea of holding Bactrim. States that he has been on combination of Entresto eplerenone,and Bactrim and his creatinine has been stable and wants to continue all meds. Creatinine improved and has been stable in the past can
continue with outpatient close follow-up.
Monitor for hypotension.
Follow BMP
Nonischemic cardiomyopathy with recovered EF 30% to 50%
Possibly cardiac toxicity from doxorubicin
On GDMT prior to admission including bisoprolol, Entresto, Jardiance.
Monitor volume status closely
Mantle cell lymphoma.
Initial diagnosis 2011 treated with doxorubicin based regimen
Records in 2021 treated with CAR-T cell therapy
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
Factor V Leyden
On anticoagulation with Xarelto
PAD with history of bilateral angiogram and stenting of bilateral common iliac arteries and left external artery 01/03.
Full code
DVT prophylaxis Xarelto
Discussed with spouse at bedside in detail
Anticipated Discharge: Within 24 hours
Subjective/Interval History
-
Date of Service: October 31, 2023
states of dry cough
spiked fever yesterday
Objective Data
-
Vital Signs:
Vital Signs
Temp Pulse Resp BP Pulse Ox
98 F 78 16 127/67 98
10/31/23 07:17 10/31/23 07:17 10/31/23 07:17 10/31/23 07:17 10/31/23 08:50
I&O
10/30/23 10/31/23 11/01/23
06:59 06:59 06:59
Intake Total 480 / 480 1380 / 1380
Balance 480 / 480 1380 / 1380
Physical Exam
-
General: Well Developed and No Apparent Distress
HEENT: Normocephalic, Atraumatic and Moist Mucous Membranes
Respiratory: Clear to Auscultation; Negative Wheezes
Cardiac: Regular Rhythm and S1/S2; Negative Murmur, Rub or Gallop
GI: Soft, Nontender, Nondistended and Normal Bowel Sounds; Negative Organomegaly
Rectal: Deferred by Provider
Musculoskeletal: No Clubbing, No Cyanosis and No Edema
Skin: Negative Rash
Neuro: Awake, AO x 3, No Motor Deficits and Nonfocal/Grossly Intact
Psych: Calm
Data Reviewed
-
Total Time Spent with Patient (in minutes): 58
[2023-10-31] MEDS: STERILE WATER FOR INJECTION 10 ML IV (15:10)
[2023-10-31] MEDS: ROCEPHIN 1000 MG IV (15:10)
[2023-10-31 15:49] VITALS: BP 120/65
[2023-10-31] MEDS: XARELTO 20 MG PO (17:30)
[2023-10-31] MEDS: CRESTOR 40 MG PO (17:30)
[2023-10-31] MEDS: ZETIA 10 MG PO (21:08)
[2023-10-31 23:00] VITALS: BP 110/60
[2023-11-01 07:06] VITALS: BP 137/81
[2023-11-01] MEDS: PROTONIX 40 MG PO (08:05)
[2023-11-01] MEDS: MUCINEX 600 MG PO (08:05)
[2023-11-01] MEDS: VIBRAMYCIN 100 MG PO (08:05)
[2023-11-01] MEDS: ZOVIRAX 400 MG PO (08:05)
[2023-11-01] MEDS: MAG-TAB SR 84 MG PO (08:06)
[2023-11-01] MEDS: THERAGRAN 1 TABLET PO (08:06)
[2023-11-01] MEDS: VITAMIN D3 (cholecalciferol) 50 MCG PO (08:06)
[2023-11-01] MEDS: JARDIANCE 10 MG PO (08:06)
[2023-11-01] MEDS: ZEBETA 5 MG PO (08:06)
--- NOTE | 2023-11-01 10:58 | W.PN.HOSP.TC ---
Addendum entered and electronically signed by Puneet Kendrick MD 11/01/23 12:26:
Cr stable. will dc home.
More than 30 minutes spent in discharge including
Final examination of the patient
Summarizing hospital stay
Instructions for continuing care to all relevant caregivers
Preparation of discharge records, prescriptions, and referral forms
Total time spent (in minutes): 52
Original Note:
Today's Communication/Plan
-
po abx on dc
await labs prior to DC
Assessment / Plan
Assessment / Plan
IMPRESSION:
Persistent right middle lobe pneumonia. Community-acquired
Immunosuppressed state
Odynophagia
Acute kidney injury
Conditions prior to admission.
Mantle cell lymphoma diagnosed in 2011 with recurrence in 2021.
Nonischemic cardiomyopathy with recovered EF.
Status post pacemaker 2014.
PAD.
Dyslipidemia.
Factor V Leyden mutation on anticoagulation with Xarelto
PLAN:
Right middle lobe pneumonia.
Community-acquired
Less likely aspiration
? If related to odynophagia with reasonable suspicion for aspiration.
Speech evaluation including VSE with no evidence of aspiration
Initially treated in ED with ceftriaxone and doxycycline.
Not septic on presentation.
Stable respiratory status with no requirements for supplemental oxygen
Blood culture from 10/10 negative.
Repeated blood culture 10/14 15 negative to date.
WBC within normal limits with left shift.
Tmax 102.9-Afebrile for 24h.
Continue ceftriaxone doxycycline.
Continue mucolytic's incentive spirometry
Plan for prolong course of abx. follow-up imaging as outpatient. CT chest on 09/06 negative for infiltration.
Odynophagia. Patient reports discomfort with swallowing pills but not real esophageal or epigastric pain.
No thrush.
Speech and swallow evaluation and VSE with no evidence of aspiration
If persistent and relevant, would consider further GI evaluation including esophageal imaging
Acute kidney injury suspect secondary to Entresto, eplerenone, Bactrim.
Hold all of above.
Creatinine improved to normal with IV fluids.
Patient did not like the idea of holding Bactrim. States that he has been on combination of Entresto eplerenone,and Bactrim and his creatinine has been stable and wants to continue all meds. Creatinine improved and has been stable in the past can
continue with outpatient close follow-up.
Monitor for hypotension.
Follow BMP
Nonischemic cardiomyopathy with recovered EF 30% to 50%
Possibly cardiac toxicity from doxorubicin
On GDMT prior to admission including bisoprolol, Entresto, Jardiance.
Monitor volume status closely
Mantle cell lymphoma.
Initial diagnosis 2011 treated with doxorubicin based regimen
Records in 2021 treated with CAR-T cell therapy
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
Factor V Leyden
On anticoagulation with Xarelto
PAD with history of bilateral angiogram and stenting of bilateral common iliac arteries and left external artery 01/03.
Full code
DVT prophylaxis Xarelto
Discussed with spouse at bedside in detail on 10/30.
Anticipated Discharge: Today
Subjective/Interval History
-
Date of Service: November 01, 2023
afebrile
remains on room air
Objective Data
-
Labs:
Laboratory Results
11/01/23
10:31
WBC Pending
Hgb Pending
Hct Pending
Plt Count Pending
Sodium Pending
Potassium Pending
Chloride Pending
Carbon Dioxide Pending
BUN Pending
Creatinine Pending
Glucose Pending
Calcium Pending
Vital Signs:
Vital Signs
Temp Pulse Resp BP Pulse Ox
97.7 F 84 16 137/81 95
11/01/23 07:06 11/01/23 08:06 11/01/23 07:06 11/01/23 08:06 11/01/23 07:45
I&O
10/31/23 11/01/23 11/02/23
06:59 06:59 06:59
Intake Total 1380 / 1380 1060 / 1060
Balance 1380 / 1380 1060 / 1060
Physical Exam
-
General: Well Developed and No Apparent Distress
HEENT: Normocephalic, Atraumatic and Moist Mucous Membranes
Respiratory: Clear to Auscultation; Negative Wheezes
Cardiac: Regular Rhythm and S1/S2; Negative Murmur, Rub or Gallop
GI: Soft, Nontender, Nondistended and Normal Bowel Sounds; Negative Organomegaly
Rectal: Deferred by Provider
Musculoskeletal: No Clubbing, No Cyanosis and No Edema
Skin: Negative Rash
Neuro: Awake, AO x 3, No Motor Deficits and Nonfocal/Grossly Intact
Psych: Calm
[2023-11-01 11:46] LABS: % Basophils 0.6 % (0-2); % Eosinophils 4.2 % (0-6); % Immature Granulocytes 0.6 % (0-0.5); % Lymphocytes 8.3 % (20.5-51.1); % Monocytes 19.3 % (1.7-9.3); Absolute Eosinophils 0.1 10^3/uL (0-0.7); Absolute Lymphocytes 0.3 10^3/uL (1.2-3.4); Absolute Monocytes 0.7 10^3/uL (0.1-0.6); Absolute Neutrophils 2.3 10^3/uL (1.4-6.5); Hematocrit 33.4 % (39.0-52.0); Hemoglobin 11.7 g/dL (13.0-18.0); Mean Corpuscular Hgb 31.9 pg (27.0-31.0); Mean Platelet Volume 9.5 fL (7.4-10.4); Nucleated Red Blood Cells % 0 % (-); Platelet Count 110 10^3/uL (130-400); Red Blood Cell Count 3.67 10^6/uL (4.70-6.10); Red Cell Dist. Width 13.1 % (11.5-14.5); White Blood Cell Count 3.4 10^3/uL (4.8-10.8)
[2023-11-01 12:02] LABS: Blood Urea Nitrogen 21 mg/dl (9-20); Calcium 9.3 mg/dl (8.4-10.2); Carbon Dioxide 27 mmol/L (22-30); Chloride 103 mmol/L (98-107); Estimated Creatinine Clearance 69 ml/min; Glucose 73 mg/dl (70-99); Sodium 139 mmol/L (135-145); eGFR > 60.00
--- NOTE | 2023-11-01 12:09 | W.DCSUMMARY ---
Discharge Summary
Discharge Data
Date of Admission: 10/29/23
Date of Discharge: 11/01/23
-
Pending Results: No
Hospital Course
73-year-old male extensive past medical history of mantle cell lymphoma, nonischemic cardiomyopathy, peripheral arterial disease, hyperlipidemia, factor V Leiden mutation, immunocompromise state who is seen in the ER with complaints of fever chills
and cough. Chest x-ray with right middle lobe pneumonia. Patient was given antibiotics and was discharged and patient returned back with complaints of cough fatigue. On presentation patient was hemodynamically stable. Patient was started on
ceftriaxone and doxycycline. Patient was eval by speech and passed without any difficulty. Patient had acute kidney injury which resolved with IV fluid resuscitation and holding of cardiac meds. Patient was on Entresto, eplerenone and Bactrim.
Creatinine could be falsely positively elevated. Patient did not want to change any medication and want to continue with his outpatient cardiac meds and also Bactrim for prophylaxis. Patient creatinine down trended. Patient creatinine remained
stable. Patient had prior lab results and showed that his creatinine has remained persistently stable for greater than 1 year while multiple cardiac medication. Patient remained afebrile for greater than 24 hours and will be transition from IV to
p.o. antibiotics with prolonged antibiotics course. Recommended repeat imaging as outpatient to follow-up for resolution of pneumonia;.
Discharge Plan
-
Patient Disposition: Home (Routine Discharge)
Discharge Diagnosis/Procedures: Persistent right middle lobe pneumonia. Community-acquired
Odynophagia
Acute kidney injury
Condition: Fair
Diet: 2 Gram Sodium and Restrict fluids to 48 oz
Activity: As tolerated
Driving Restrictions: As prior to admission
Blood Work: Recommend BMP in 7 to 10 days with primary doctor
Others Tests: Recommend repeat chest x-ray in 4-5 weeks to see resolution of pneumonia
Referrals:
Dayami Sánchez DO [Family Provider] - in less than 1 week
Prescriptions:
New
doxycycline hyclate 100 mg Capsule
100 mg PO Q12 7 Days Qty: 14 0RF
cefdinir 300 mg capsule
300 mg PO Q12H Qty: 14 0RF
Continued
bisoprolol fumarate 5 MG tablet
5 mg PO BID
eplerenone 25 MG tablet
25 mg PO DAILY
ezetimibe 10 MG tablet
10 mg PO HS
tadalafil [Cialis] 5 MG tablet
5 mg PO QPM
cholecalciferol (vitamin D3) 2,000 UNIT tablet
2,000 unit PO DAILY
coQ10 (ubiquinol) 100 mg Capsule
100 mg PO DAILY Qty: 0
acyclovir 400 mg Tablet
400 mg PO BID
sulfamethoxazole-trimethoprim [Bactrim DS] 800-160 mg Tablet
1 tab PO MOWEFR@0800
rosuvastatin [Crestor] 40 mg Tablet
40 mg PO QPM
omeprazole 20 mg Tablet,Delayed Release (Dr/Ec)
20 mg PO DAILY
Xarelto 20 mg Tablet
20 mg PO QPM
Jardiance 10 mg Tablet
10 mg PO DAILY
Entresto 97-103 mg Tablet
1 tab PO BID
vitamin K2 (MK-4) 100 mcg Tablet
300 mcg PO DAILY
glucosamine sulfate [Glucosamine] 500 mg Tablet
1,500 mg PO DAILY
therapeutic multivitamin Tablet
1 tab PO DAILY
magnesium oxide 400 mg magnesium Tablet
400 mg PO DAILY
Discharge Orders:
Discharge Patient (As Directed); Ordered 11/01/23
Ordered By: Puneet Kendrick
Discharge Date and Time
Print Language: GREEK
--- NOTE | 2023-11-01 12:46 | CM ---
met with patient and his .patient is stable to dc home with no needs.patient signed imm lettter. to transport home.
[2023-11-01] MEDS: STERILE WATER FOR INJECTION 10 ML IV (13:44)
[2023-11-01] MEDS: ROCEPHIN 1000 MG IV (13:45)
== END 2023-11-01 15:14 | disposition home or self-care (01) | DRG 194 ==
LOC: 4 EAST ACU 15:33
PROVIDERS: Registered Nurse; ADMITTING PHYSICIAN Internal Medicine; ATTENDING PHYSICIAN Hospitalist; EMERGENCY PHYSICIAN Emergency Medicine; FAMILY PHYSICIAN Internal Medicine
DX: J18.9 Pneumonia, unspecified organism (principal); C83.10 Mantle cell lymphoma, unspecified site; D68.51 Activated protein C resistance; I42.8 Other cardiomyopathies; N17.9 Acute kidney failure, unspecified; D84.9 Immunodeficiency, unspecified; E11.51 Type 2 diabetes mellitus with diabetic peripheral angiopathy without gangrene; E78.00 Pure hypercholesterolemia, unspecified; E86.0 Dehydration; I10 Essential (primary) hypertension; R13.10 Dysphagia, unspecified; Z79.2 Long term (current) use of antibiotics; Z95.0 Presence of cardiac pacemaker; Z87.891 Personal history of nicotine dependence; Z88.8 Allergy status to other drugs, medicaments and biological substances; Z79.01 Long term (current) use of anticoagulants; Z11.52 Encounter for screening for COVID-19
CPT/HCPCS: 71046; 74230; 80048; 80053; 85025; 86803; 87811; 92610; 92611; 96361; 96374; 99284

== ENCOUNTER → 2023-11-11 07:16 | Outpatient (REF) | payer MEDICARE, BC, SELFPAY ==
[2023-11-11 08:22] LABS: % Basophils 1.4 % (0-2); % Eosinophils 1.9 % (0-6); % Immature Granulocytes 1.2 % (0-0.5); % Lymphocytes 12.6 % (20.5-51.1); % Monocytes 12.6 % (1.7-9.3); % Neutrophils 70.3 % (42.2-75.2); Absolute Basophils 0.1 10^3/uL (0-0.2); Absolute Eosinophils 0.1 10^3/uL (0-0.7); Absolute Immature Granulocytes 0.1 10^3/uL (0-0.05); Absolute Lymphocytes 0.5 10^3/uL (1.2-3.4); Absolute Monocytes 0.5 10^3/uL (0.1-0.6); Hematocrit 37.4 % (39.0-52.0); Hemoglobin 13.2 g/dL (13.0-18.0); Mean Corp Hgb Conc. 35.3 g/dL (33.0-37.0); Mean Corpuscular Hgb 31.3 pg (27.0-31.0); Mean Corpuscular Volume 88.6 fL (80.0-94.0); Mean Platelet Volume 9.6 fL (7.4-10.4); Nucleated Red Blood Cells % 0 % (-); Platelet Count 146 10^3/uL (130-400); Red Blood Cell Count 4.22 10^6/uL (4.70-6.10); Red Cell Dist. Width 14.1 % (11.5-14.5); White Blood Cell Count 4.3 10^3/uL (4.8-10.8)
[2023-11-11 08:59] LABS: ALT (SGPT) 47 U/L (0-50); AST (SGOT) 47 U/L (17-59); Albumin 4.4 g/dl (3.5-5.0); Alkaline Phosphatase 72 U/L (38-126); Blood Urea Nitrogen 36 mg/dl (9-20); Calcium 9.7 mg/dl (8.4-10.2); Carbon Dioxide 22 mmol/L (22-30); Chloride 107 mmol/L (98-107); Glucose 116 mg/dl (70-99); Potassium 4.4 mmol/L (3.5-5.1); Sodium 142 mmol/L (135-145); Total Bilirubin 0.6 mg/dl (0.2-1.3); Total Protein 6.2 g/dl (6.3-8.2); eGFR > 60.00
== END ==
LOC: REG 07:16
PROVIDERS: ATTENDING PHYSICIAN Internal Medicine
DX: N17.9 Acute kidney failure, unspecified (principal); J18.9 Pneumonia, unspecified organism
CPT/HCPCS: 36415; 80053; 85025

== ENCOUNTER → 2023-11-20 07:59 | Outpatient (REF) | payer MEDICARE, BC, SELFPAY | LOC: HWRAD 07:59 | PROVIDERS: ATTENDING PHYSICIAN Internal Medicine | DX: J18.9 Pneumonia, unspecified organism (principal) | CPT/HCPCS: 36415; 71270; 87070; 87077; 87186; 87205; Q9967 ==

== ENCOUNTER → 2024-02-08 07:31 | Outpatient (REF) | payer MEDICARE, BC, SELFPAY | LOC: HWRAD 07:31 | PROVIDERS: ATTENDING PHYSICIAN Internal Medicine Critical Care Medicine; FAMILY PHYSICIAN Internal Medicine | DX: R06.09 Other forms of dyspnea (principal); J18.9 Pneumonia, unspecified organism | CPT/HCPCS: 71250 ==

== ENCOUNTER → 2024-02-10 14:08 | Outpatient (REF) | payer MEDICARE, BC, SELFPAY ==
[2024-02-11 06:08] LABS: IgG 838 mg/dl (700-1600)
== END ==
LOC: REG 14:08
PROVIDERS: ATTENDING PHYSICIAN Internal Medicine Hematology; FAMILY PHYSICIAN Internal Medicine
DX: C83.37 Diffuse large B-cell lymphoma, spleen (principal)
CPT/HCPCS: 36415; 82784; 86355; 86357; 86359; 86360

== ENCOUNTER → 2024-04-08 07:45 | Outpatient (REF) | payer MEDICARE, BC, SELFPAY | LOC: RAD 07:45 | PROVIDERS: ATTENDING PHYSICIAN Surgery Vascular Surgery; FAMILY PHYSICIAN Internal Medicine | DX: I73.9 Peripheral vascular disease, unspecified (principal) | CPT/HCPCS: 93922; 93925 ==

== ENCOUNTER → 2024-07-18 08:08 | Outpatient (REF) | payer MEDICARE, BC, SELFPAY ==
[2024-07-18 09:34] LABS: ALT (SGPT) 33 U/L (0-50); AST (SGOT) 40 U/L (17-59); Albumin 4.1 g/dl (3.5-5.0); Alkaline Phosphatase 58 U/L (38-126); Blood Urea Nitrogen 27 mg/dl (9-20); Calcium 9.3 mg/dl (8.4-10.2); Carbon Dioxide 27 mmol/L (22-30); Chloride 104 mmol/L (98-107); Glucose 118 mg/dl (70-99); HDL Cholesterol 51 mg/dl; LDL Cholesterol, Calculated 80 mg/dl; Potassium 4.5 mmol/L (3.5-5.1); Sodium 142 mmol/L (135-145); Total Bilirubin 0.6 mg/dl (0.2-1.3); Total Cholesterol 152 mg/dl (50-199); Total Protein 6.7 g/dl (6.3-8.2); Triglyceride 107 mg/dl (10-149); Very Low Density Lipoprotein 21 mg/dl (0-30); eGFR > 60.00
[2024-07-18 09:37] LABS: Vitamin D, 25-OH*** 87.8 ng/mL (30-80)
[2024-07-18 09:44] LABS: IgG 1091 mg/dl (700-1600)
[2024-07-18 12:53] LABS: Varicella Zoster IgG (VZV) Positive
[2024-07-18 14:35] LABS: Rubeola (Measles) IgG Positive
== END ==
LOC: REG 08:08
PROVIDERS: ATTENDING PHYSICIAN Internal Medicine
DX: D80.1 Nonfamilial hypogammaglobulinemia (principal); E55.9 Vitamin D deficiency, unspecified; E78.2 Mixed hyperlipidemia; Z01.84 Encounter for antibody response examination
CPT/HCPCS: 36415; 80053; 80061; 82306; 82784; 86765; 86787

== ENCOUNTER 2024-12-17 17:35 | Emergency (ER) | payer SELFPAY ==
[2024-12-17 17:41] VITALS: BP 115/64
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
== END 2024-12-17 19:42 | disposition home or self-care (01) ==
LOC: EMR 17:35
PROVIDERS: EMERGENCY PHYSICIAN Emergency Medicine
DX: S52.571A Other intraarticular fracture of lower end of right radius, initial encounter for closed fracture (principal); S52.611A Displaced fracture of right ulna styloid process, initial encounter for closed fracture; V49.40XA Driver injured in collision with unspecified motor vehicles in traffic accident, initial encounter; E11.9 Type 2 diabetes mellitus without complications; E78.00 Pure hypercholesterolemia, unspecified; I10 Essential (primary) hypertension; Z79.01 Long term (current) use of anticoagulants; Z87.891 Personal history of nicotine dependence; Z95.0 Presence of cardiac pacemaker; Z85.72 Personal history of non-Hodgkin lymphomas
CPT/HCPCS: 29125; 99283; 73110

== ENCOUNTER → 2024-12-21 07:28 | Outpatient (REF) | payer MEDICARE, BC, SELFPAY | LOC: REG 07:28 | PROVIDERS: ATTENDING PHYSICIAN Internal Medicine Infectious Disease; FAMILY PHYSICIAN Internal Medicine | DX: D80.1 Nonfamilial hypogammaglobulinemia (principal); C83.70 Burkitt lymphoma, unspecified site | CPT/HCPCS: 36415; 82787 ==

== ENCOUNTER → 2025-02-14 06:59 | Outpatient (REF) | payer MEDICARE, BC, SELFPAY | LOC: REG 06:59 | PROVIDERS: ATTENDING PHYSICIAN Internal Medicine Infectious Disease; FAMILY PHYSICIAN Internal Medicine | DX: D80.1 Nonfamilial hypogammaglobulinemia (principal); C83.70 Burkitt lymphoma, unspecified site | CPT/HCPCS: 36415; 82787 ==